=== PATIENT | male | born 1955 | race Caucasian/White ===

== ENCOUNTER 2019-11-04 14:36 | Emergency (ER) | payer OTHER, SELFPAY ==
[2019-11-04 14:51] VITALS: BP 150/79; PULSE 62; RESP 13; TEMP 36.2; O2SAT 100
--- NOTE | 2019-11-04 15:20 | ED_ITS ---
HPI - Wound/Laceration <Ana Segura PA-C - Last Filed: 11/04/19 23:53> General Chief Complaint: Wound/Laceration Stated Complaint: cut right thumb Time Seen by Provider: 11/04/19 14:44 Mode of arrival: Ambulatory History of Present Illness HPI narrative: Previously healthy 64 year old who presents with Left distal thumb laceration crossing the nail bed with bleeding well controlled. He was using a miter saw earlier today to work on some base boards on a construction project and he says ?my thumb got too close to the saw. He came to the emergency department immediately afterwards, he says he is experiencing minimal pain and he says that his sensation feels normal at the end of his thumb. He states this is an isolated complaint he did not have any other injuries, he also denies any prodrome of dizziness lightheadedness prior to this injury, he says he ?was cutting something smaller than I probably should have been. He denies significant bleeding, severe pain, loss of sensation, or any other injury. Onset (ago): hour(s) (1) Extremity Location: Right: hand Place: home Patient tetanus UTD: Yes (2016) Context: accidental Associated symptoms: pain Related Data Previous Rx's Medication Instructions Recorded ibuprofen 800 mg PO Q8H #30 tab 11/04/19 oxycodone-acetaminophen 1 tab PO Q8H PRN #12 tab 11/04/19 Allergies Allergy/AdvReac Type Severity Reaction Status Date / Time No Known Drug Allergies Allergy Verified 11/04/19 15:58 Review of Systems <Ana Segura PA-C - Last Filed: 11/04/19 23:53> Review of Systems Narrative: GENERAL: Denies chills, fatigue, malaise, fever, sweats. HEENT: Denies sinus pain, ear pain, sore throat, difficulty swallowing, dizziness. RESPIRATORY: Denies dyspnea, cough, wheezing, hemoptysis, sputum. CARDIOVASCULAR: Denies chest pain, palpitations, orthopnea, edema, MUSCULOSKELETAL: denies weakness, joint pain, or bony pain SKIN: Positive for deep laceration through the entire nail of his right thumb. Denies rash, skin lesions, or other NEUROLOGIC: Denies weakness, headache, numbness, change in speech, confusion, seizures, incoordination. PSYCHIATRIC: No concerning psychosocial issues. 12 point review of systems is negative except for those stated above Patient History <Ana Segura PA-C - Last Filed: 11/04/19 23:53> Social History Smoking Status: Never smoker Smoking Status: Never smoker alcohol intake frequency: a few times a month Substance Use Type: does not use Exam <Ana Segura PA-C - Last Filed: 11/04/19 23:53> Narrative Exam Narrative: GENERAL: 64 year old patient appears stated age. Well-nourished, well-developed patient, in mild distress. HEAD: Atraumatic. Normocephalic. EYES: Pupils equal round and reactive. Extraocular motions intact. No scleral icterus. No injection or drainage. CARDIOVASCULAR: Regular rate and rhythm without murmurs, gallops, or rubs. RESPIRATORY: Clear to auscultation. Breath sounds equal bilaterally. No wheezes, rales, or rhonchi. GASTROINTESTINAL: Abdomen soft, non-tender, nondistended. EXTREMITIES: There is a deep laceration of the Right 1st distal finger on the posterior side through the nail bed and crossing the nail laterally at a slight angle and extending into the skin laterally on both sides of the nail bed. Bleeding is controlled. Distal fingertip has mobility suggestive of a fracture. No edema or joint tenderness. Sensation is intact, slightly diminished at the distal finger tip. NEURO: AOx3. SKIN: No rash or erythema of visible areas Initial Vital Signs Initial Vital Signs: Vital Signs Temperature 97.1 F L 11/04/19 14:51 Pulse Rate 62 11/04/19 14:51 Respiratory Rate 13 11/04/19 14:51 Blood Pressure 150/79 H 11/04/19 14:51 Pulse Oximetry 100 11/04/19 14:51 <Rajesh Diaz DO - Last Filed: 11/05/19 08:01> Initial Vital Signs Initial Vital Signs: Vital Signs Temperature 97.1 F L 11/04/19 14:51 Pulse Rate 62 11/04/19 14:51 Respiratory Rate 13 11/04/19 14:51 Blood Pressure 150/79 H 11/04/19 14:51 Pulse Oximetry 100 11/04/19 14:51 Procedures <Ana Segura PA-C - Last Filed: 11/04/19 23:53> Laceration Repair Laceration 1: Site: hand Side (If applicable): right Description: linear and contaminated Depth: [id number] (Involves bone, open fracture.) Local Anesthetic: lidocaine 1% (Digital block) Amount of anesthesia used (mL): 6 Pre-repair: wound explored and irrigated extensively Skin layer closed with: nylon Size (cm): 4-0 and 5-0 Number of sutures: 5 Technique: simple, interrupted and other (Three sutures with 4-0 nylon through the nail bed to reattach distal finger tip and distal nail 2 sutures 5-0 nylon through the skin lateral/medial to nail bed) Course <Ana Segura PA-C - Last Filed: 11/04/19 23:53> Orders Ordered: Discontinued Medications Acetaminophen (Tylenol) 650 mg PO NOW ONE Stop: 11/04/19 15:31 Last Admin: 11/04/19 16:01 Dose: 650 mg Documented by: ABDIR Cefazolin Sodium/Dextrose (Ancef) 1 gm in 50 mls @ 200 mls/hr IV NOW ONE Stop: 11/04/19 16:36 Last Infusion: 11/04/19 18:02 Dose: 0 mls/hr Documented by: Admin: 11/04/19 16:47 Dose: 200 mls/hr Documented by: BTONER Ibuprofen (Advil) 800 mg PO NOW ONE Stop: 11/04/19 15:31 Last Admin: 11/04/19 16:01 Dose: 800 mg Documented by: BTONER Lidocaine/Prilocaine (Lidocaine-Prilocaine Cream) 5 gm TOP NOW ONE Stop: 11/04/19 15:32 Last Admin: 11/04/19 16:01 Dose: 5 gm Documented by: BTONER Lidocaine/Sodium Bicarbonate (Buffered Lidocaine 10 Ml Syr) 10 ml INJ NOW ONE Stop: 11/04/19 16:25 Last Admin: 11/04/19 16:47 Dose: 10 ml Documented by: BTONER Consultations Consultation #1: Dr. Guardado, orthopedics was consulted regarding this patient, he advised Ancef in the emergency department, washout and a simple suture closure with follow-up appointment at his office in 2 days, on Monday. Vital Signs Vital signs: Vital Signs - 8 hr 11/04/19 19:19 Pulse Rate 70 Respiratory Rate 16 Blood Pressure 124/76 Pulse Oximetry 98 <Rajesh Diaz DO - Last Filed: 11/05/19 08:01> Orders Ordered: Discontinued Medications Acetaminophen (Tylenol) 650 mg PO NOW ONE Stop: 11/04/19 15:31 Last Admin: 11/04/19 16:01 Dose: 650 mg Documented by: BTONER Cefazolin Sodium/Dextrose (Ancef) 1 gm in 50 mls @ 200 mls/hr IV NOW ONE Stop: 11/04/19 16:36 Last Infusion: 11/04/19 18:02 Dose: 0 mls/hr Documented by: Admin: 11/04/19 16:47 Dose: 200 mls/hr Documented by: BTONER Ibuprofen (Advil) 800 mg PO NOW ONE Stop: 11/04/19 15:31 Last Admin: 11/04/19 16:01 Dose: 800 mg Documented by: BTONER Lidocaine/Prilocaine (Lidocaine-Prilocaine Cream) 5 gm TOP NOW ONE Stop: 11/04/19 15:32 Last Admin: 11/04/19 16:01 Dose: 5 gm Documented by: BTONER Lidocaine/Sodium Bicarbonate (Buffered Lidocaine 10 Ml Syr) 10 ml INJ NOW ONE Stop: 11/04/19 16:25 Last Admin: 11/04/19 16:47 Dose: 10 ml Documented by: BTONER Vital Signs Vital signs: Vital Signs - 8 hr 11/04/19 19:19 Pulse Rate 70 Respiratory Rate 16 Blood Pressure 124/76 Pulse Oximetry 98 MDM - Wound/Laceration <Ana Segura PA-C - Last Filed: 11/04/19 23:53> Differential Diagnosis Differential diagnosis: Likely laceration and other (fracture) Medical Records Attestation: I reviewed the patient's medical records. Imaging Data Extremity x-ray #1: Attestation: I personally reviewed and interpreted this imaging study as follows: Radiologist's Impression: [address] [address] XRay Report Signed Patient: Benny Dickerson#: [id number] : 6Acct:[id number] Age/Sex: 64 / MDate of Service: 11/04/19 Loc: ED Accession Number: [id number] Procedure: XR finger RT min 2V Ordering Provider: Ana Segura P.A-C PROCEDURE: XR FINGER RT MIN 2V INDICATIONS: saw near tip of digit TECHNIQUE: AP hand, 2 views of the 1st finger(s) acquired. COMPARISON: None. FINDINGS: Bones: There is a mildly displaced fracture of the distal tuft of the distal phalanx of the 1st digit. Joint space narrowing and peritubular osteophytes formation at the interphalangeal joints of the digits. Soft tissues: No suspicious soft tissue calcifications. IMPRESSION: 1st digit fracture as above. Dictated by: Vick Oseguera M.D. on 11/04/2019 at 15:48 Approved by: Vick Osegeura M.D. on 11/04/2019 at 15:48 MDM Narrative Medical decision making narrative: This is a generally healthy 64-year-old who presents to the emergency department with complaints of a miter saw injury to his distal right thumb. Injury was sustained today just prior to arrival at the emergency department. Differential diagnoses that were considered include laceration, open fracture, vascular damage, nerve damage, tendon damage, risk of infection. He had a mildly displaced distal tuft fracture of the distal phalanx of his right hand 1st digit. He received Ancef IV in the emergency department and the wound was irrigated and sutured as above. He was provided with instructions for follow-up with Dr. Guardado, and provided with emergency return precautions. He was also prescribed ibuprofen and a short course of Percocet. Labs were not obtained. Of note he does not have an established PCP here and I provided him with [facility] information so that he can attempt to set this up. All questions were answered. Discharge Plan Departure Patient Disposition: Home Clinical Impression: Laceration Fracture of thumb, right open Qualifiers: Encounter type: initial encounter Phalanx: distal Fracture alignment: displaced Qualified Code(s): S62.521B - Displaced fracture of distal phalanx of right thumb, initial encounter for open fracture Discharge Date/Time: 11/04/19 19:19 Instructions: DI for Laceration Repair, DI for Open Fracture Activity Restrictions/Additional Instructions: Thank you for allowing us to be part of your care in the emergency department today. You have a fracture of the distal and of your thumb and you should call to make an appointment with orthopedic physician Dr. Guardado or his office this week. He received IV antibiotics in the emergency department today because he had open fracture of your bone, it was also thoroughly washed out and repaired with sutures. There is no evidence of an emergent or life threatening illness at this time, but follow up with your doctor in 1-2 days is recommended nonetheless to continue to rule out serious underlying causes of your symptoms. Please call the office for an appointment. Please return to the Emergency Depa rtment for any worsening or persistent symptoms. Please take medications as directed. I have provided a prescription of stronger pain medicine for the next 3 days which you can take if needed, but 1st try alternating Tylenol and ibuprofen for pain if you prefer. Please pay attention to how you are doing, and watch for any signs of infection such as fever, chills, nausea or vomiting. He should follow the dosing instructions on your Tylenol [id number] medicine, the maximum safe doses in a day is 4000 mg, spaced out (for a short duration). Maximum dose of ibuprofen is 3200 mg per day also for a short duration. I prescribed ibuprofen 800 for you I have also prescribed Percocet for 3 days which he can take every 8 hours as needed for pain, these have both been a prescribed and sent to the [facility] in [place]. Prescriptions: New ibuprofen 800 mg tablet 800 mg PO Q8H Qty: 30 RF: 0 oxycodone-acetaminophen 5-325 mg tablet 1 tab PO Q8H PRN (Reason: pain) Qty: 12 RF: 0 Referrals: [facility] [Outside] Tavares Guardado MD [Physician] - (Call for appt this week (Likely Monday)) <Rajesh Diaz DO - Last Filed: 11/05/19 08:01> [facility] I was immediately available in the department for consultation. This documentation has been reviewed and I agree with assessment and plan. Supervised by Rajesh Diaz DO
[2019-11-04] MEDS: LIDOCAINE/PRILOCAINE 5 GM TOP (16:01)
[2019-11-04] MEDS: IBUPROFEN 400 MG TABLET 800 MG PO (16:01)
[2019-11-04] MEDS: ACETAMINOPHEN 325 MG TABLET 650 MG PO (16:01)
[2019-11-04] MEDS: LIDO 1%/SOD BICARB 8.4% (10ML) 10 ML SYRINGE INJ (16:47)
[2019-11-04] MEDS: CEFAZOLIN 1 GM/50 ML FROZ.PIGGY IV (16:47)
--- NOTE | 2019-11-04 19:18 | PC.NURSE ---
surg i rachael used on wound before bulky dressing.
[2019-11-04 19:19] VITALS: BP 124/76; PULSE 70; RESP 16; O2SAT 98
== END 2019-11-04 19:19 | disposition home or self-care (01) ==
PROVIDERS: Emergency Provider Student in an Organized Health Care Education/Training Program
DX: S62.521B Displaced fracture of distal phalanx of right thumb, initial encounter for open fracture (principal); W29.3XXA Contact with powered garden and outdoor hand tools and machinery, initial encounter
CPT/HCPCS: 12041; 73140; 96365; 99284

== ENCOUNTER → 2019-11-15 11:37 | Outpatient (CLI) | payer OTHER, SELFPAY ==
--- NOTE | 2019-11-15 | DI.RAD.S_ITS ---
PROCEDURE: XR KNEE RT 3V INDICATIONS: RIGHT KNEE PAIN TECHNIQUE: 3 views of the knee were acquired. COMPARISON: None. FINDINGS: Bones: No fractures or dislocations. No suspicious bony lesions. Minimal to mild medial and lateral as well as minimal patellofemoral compartment narrowing. No erosions. Soft tissues: Mild joint effusion. No suspicious soft tissue calcifications. IMPRESSION: Minimal to mild tricompartmental degenerative change suggestive osteoarthritis. Dictated by: Bhavya Anand M.D. on 11/15/2019 at 16:47 Approved by: Bhavya Anand M.D. on 11/15/2019 at 16:47
== END ==
PROVIDERS: PCP Family Medicine; Referring Provider Family Medicine; Visit Provider Family Medicine
DX: M25.561 Pain in right knee (principal); M25.461 Effusion, right knee
CPT/HCPCS: 73562

== ENCOUNTER → 2019-12-10 09:39 | Outpatient (CLI) | payer OTHER, SELFPAY ==
--- NOTE | 2019-12-10 | DI.MRI.S_ITS ---
PROCEDURE: MR KNEE RT WO CON INDICATIONS: Right knee pain TECHNIQUE: Noncontrast sagittal PD fast spin echo and T2 fast spin echo with fat saturation, sagittal 3-D FLASH with fat saturation; coronal T1 spin echo and PD fast spin echo with fat saturation, and axial PD fast spin echo with fat saturation through the knee. COMPARISON: [facility], CR, XR KNEE RT 3V, 11/15/2019, 11:35. FINDINGS: Image quality: Excellent. Menisci: There is linear oblique high T2 signal intensity traversing the posterior horn medial meniscus, demonstrating inferior articular surface extension. Lateral meniscus is intact. Cruciate ligaments: The anterior and posterior cruciate ligaments appear intact. Medial structures: The medial collateral ligament appears intact. Visualized portions of the pes anserinus tendons appear normal. No abnormal bursal fluid. Lateral structures: The lateral collateral ligament, long and short heads of the biceps femoris tendon appear intact. The popliteus tendon appears normal. Iliotibial band appears normal. Anterior structures: The quadriceps and patellar tendons appear intact. Patellar alignment is normal. No femoral trochlear dysplasia or ventral trochlear prominence. No edema in the infrapatellar fat pad. Mild prepatellar subcutaneous ill-defined STIR signal elevation. Bones and cartilage: No bone marrow contusions or fractures. Mild tricompartmental periarticular osteophyte formation is. There is mild diffuse articular cartilage loss overlying the weightbearing aspects of the medial femoral condyle and medial tibial plateau. Articular cartilage cerebral H. overlies the medial and lateral patellar facets. Joint space: There is a small knee joint effusion and a trace Dick's cyst. Normal appearing synovial plicae are incidentally noted. IMPRESSION: 1. Medial meniscal tear. 2. Medial and patellofemoral compartment cartilage loss. 3. Prepatellar bursitis. Dictated by: Vick Oseguera M.D. on 12/10/2019 at 10:43 Approved by: Vick Oseguera M.D. on 12/10/2019 at 10:45
== END ==
PROVIDERS: PCP Family Medicine; Referring Provider Family Medicine; Visit Provider Family Medicine
DX: M25.561 Pain in right knee (principal); S83.241A Other tear of medial meniscus, current injury, right knee, initial encounter; M70.41 Prepatellar bursitis, right knee
CPT/HCPCS: 73721

== ENCOUNTER → 2021-04-08 13:43 | Outpatient (CLI) | payer OTHER, SELFPAY ==
--- NOTE | 2021-04-08 | DI.CT.S_ITS ---
PROCEDURE: CT SINUS SCREEN WO CON INDICATIONS: Chronic pansinusitis TECHNIQUE: Noncontrast 3.0 mm axial images acquired from the frontal sinuses to the mid-sella, with coronal and sagittal reformats. For radiation dose reduction, the following was used: automated exposure control, adjustment of mA and/or kV according to patient size. COMPARISON: None. FINDINGS: Image quality: Excellent. Maxillary Sinuses: There is moderate mucosal thickening seen involving the inferior left maxillary sinus, with mild mucosal thickening involving the inferior right maxillary sinus. There is mild demineralization seen along medial robertson of the maxillary sinuses. Ethmoid Air Cells: No bony remodeling or destruction. Sinuses are clear. Sphenoid Sinuses: No bony remodeling or destruction. Sinuses are clear. Frontal Sinuses: No bony remodeling or destruction. Sinuses are clear. Ostiomeatal Complexes: Ostiomeatal complexes are patent. 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 Miscellaneous: Visualized intra-orbital contents are normal. No definite home bullosa or paradoxical turbinate curvature. No nasal septal deviation. IMPRESSION: Focal maxillary sinus disease can be seen, left worse than right. Demineralization is seen along the medial robertson of the maxillary sinuses, which is likely related to chronic sinusitis. Dictated by: Alfred Kingsley M.D. on 04/08/2021 at 13:15 Approved by: Alfred Kingsley M.D. on 04/08/2021 at 13:16
== END ==
PROVIDERS: PCP Family Medicine; Referring Provider Otolaryngology; Visit Provider Otolaryngology
DX: J32.4 Chronic pansinusitis (principal)
CPT/HCPCS: 70486

== ENCOUNTER → 2021-09-22 15:32 | Outpatient (CLI) | payer OTHER, SELFPAY ==
--- NOTE | 2021-09-22 | DI.RAD.S_ITS ---
PROCEDURE: XR LUMBAR SPINE 2-3V INDICATIONS: LOW BACK PAIN TECHNIQUE: 3 views of the lumbar spine were acquired. COMPARISON: None. FINDINGS: Bones: 5 [id number] vertebrae are present. There is normal bony alignment. No vertebral body compression fractures. No suspicious bony lesions. Mild degenerative disc changes noted throughout the lumbar spine. Mild L4-L5 and L5-S1 facet arthropathy. Soft tissues: Overlying bowel gas pattern is normal. No suspicious soft tissue calcifications. IMPRESSION: 1. Multilevel degenerative disc disease. 2. Multilevel facet arthropathy. 3. No fracture. No acute osseous lesion. If symptoms and/or clinical suspicion for pathology persists, evaluation with MRI should be considered for further assessment. Dictated by: Ruba Mccauley MD, PhD on 09/22/2021 at 16:51 Approved by: Ruba Mccauley MD, PhD on 09/22/2021 at 16:51
== END ==
PROVIDERS: PCP Family Medicine; Referring Provider Family Medicine; Visit Provider Family Medicine
DX: M51.36 Other intervertebral disc degeneration, lumbar region (principal); M51.37 Other intervertebral disc degeneration, lumbosacral region; M47.816 Spondylosis without myelopathy or radiculopathy, lumbar region; M47.817 Spondylosis without myelopathy or radiculopathy, lumbosacral region; M54.50 Low back pain, unspecified
CPT/HCPCS: 72100

== ENCOUNTER → 2023-05-15 15:06 | Outpatient (CLI) | payer OTHER, SELFPAY ==
--- NOTE | 2023-05-15 | DI.RAD.S_ITS ---
PROCEDURE: XR CHEST 2V INDICATIONS: cough TECHNIQUE: 2 views of the chest were acquired. COMPARISON: None. FINDINGS: Surgical changes and devices: Incompletely evaluated ACDF hardware. Lungs and pleura: Lungs are clear. No pleural effusions or pneumothorax. Mediastinum: Mediastinal contours are normal. Heart size is normal. Bones and chest wall: No suspicious bony abnormalities. Degenerative changes of the spine. Soft tissues appear unremarkable. IMPRESSION: No acute cardiopulmonary abnormality is seen. Dictated by: Michael Kowalski M.D. on 05/15/2023 at 15:48 Approved by: Michael Kowalski M.D. on 05/15/2023 at 15:49
== END ==
PROVIDERS: PCP Family Medicine; Referring Provider Family Medicine; Visit Provider Family Medicine
DX: R05.1 Acute cough (principal)
CPT/HCPCS: 71046

== ENCOUNTER → 2023-07-04 16:25 | Outpatient (CLI) | payer OTHER, SELFPAY ==
[2023-07-04 16:56] LABS: Add Manual Diff / Slide Review NO; Basophils Absolute Auto 100 /uL (0-100); Basophils Percent Auto 1.1 % (0-2); Eosinophils Absolute Auto 100 /uL (0-450); Eosinophils Percent Auto 2.1 % (2-4); Hemoglobin 13.2 g/dL (13.5-17.5); Lymphocytes Absolute Auto 1200 /uL (1100-4500); Lymphocytes Percent Auto 20.2 % (25-40); Mean Corpuscular HGB Conc 33.9 % (30-36); Mean Corpuscular Hemoglobin 30.8 PG (26-34); Mean Corpuscular Volume 90.7 fL (80-100); Monocytes Absolute Auto 400 /uL (0-900); Monocytes Percent Auto 6.5 % (3-14); Neutrophils Absolute Auto 4100 /uL (1500-7000); Neutrophils Percent Auto 70.1 % (50-75); Platelet Count 159 X10^3/uL (150-400); Red Blood Cell Count 4.29 X10^6/uL (4.5-5.9); Red Cell Distribution Width 13.2 % (11.6-14.8); White Blood Cell Count 5.8 X10^3/uL (4.5-11.0)
[2023-07-04 17:22] LABS: Erythrocyte Sedimentation Rate 8 MM/HR (0-15)
[2023-07-04 17:26] LABS: Alanine Aminotransferase 13 IU/L (<50); Albumin 4.1 g/dL (3.5-5.0); Albumin Globulin Ratio 1.3 (1.0-2.8); Alkaline Phosphatase 61 U/L (38-126); Aspartate Aminotransferase 19 IU/L (17-59); BUN Creatinine Ratio 22.9 (6-22); Bilirubin Total 0.6 mg/dL (0.2-1.3); Blood Urea Nitrogen 22 mg/dL (9-20); C-Reactive Protein Quant 0.5 mg/dL (<1.0); Calcium 8.9 mg/dL (8.4-10.2); Carbon Dioxide 30 mmol/L (22-32); Chloride 104 mmol/L (98-107); Estimated Glomerular Filt Rate > 60 mL/min (>60); Globulin 3.2 g/dL (1.7-4.1); Glucose 90 mg/dL (80-110); HEMOLYSIS < 15 (0-50); Sodium 139 mmol/L (137-145); Total Protein 7.3 g/dL (6.3-8.2)
== END ==
PROVIDERS: PCP Family Medicine; Referring Provider Family Medicine; Visit Provider Family Medicine
DX: R10.9 Unspecified abdominal pain (principal); T69.1XXA Chilblains, initial encounter
CPT/HCPCS: 36415; 80053; 85025; 85651; 86140

== ENCOUNTER → 2023-07-10 06:39 | Outpatient (CLI) | payer OTHER, SELFPAY ==
--- NOTE | 2023-07-10 06:40 | DI.US.S_ITS ---
PROCEDURE: US RENAL COMPLETE INDICATIONS: LEFT FLANK/LOWER BACK PAIN TECHNIQUE: Real-time scanning was performed of the kidneys and bladder, with image documentation. COMPARISON: None. FINDINGS: Kidneys: Kidneys are normal in size. Right kidney measures 10.1 cm long; left kidney measures 9.3 cm long. Right renal cortical thickness is 1.3 cm; left renal cortical thickness is 1.6 cm. Renal cortical echotexture is normal. No hydronephrosis or nephrolithiasis. No suspicious solid mass lesions. Bladder: Not interrogated. Miscellaneous: No free pelvic fluid. There are multiple large gallstones incidentally noted within the gallbladder fundus. The wall measures 2.4 mm in diameter. IMPRESSION: 1. No hydronephrosis. 2. Cholelithiasis. No findings to suggest choledocholithiasis or acute cholecystitis. Dictated by: Lisa Cordova M.D. on 07/10/2023 at 17:16 Approved by: Lisa Cordova M.D. on 07/10/2023 at 17:17
== END ==
LOC: US 06:39
PROVIDERS: PCP Family Medicine; Referring Provider Family Medicine; Visit Provider Family Medicine
DX: K80.20 Calculus of gallbladder without cholecystitis without obstruction (principal); R10.9 Unspecified abdominal pain
CPT/HCPCS: 76770

== ENCOUNTER 2023-08-16 09:56 | Day surgery (SDC) | payer OTHER, SELFPAY ==
[2023-08-14 08:52] VITALS: BMI 23.1
[2023-08-16 10:24] VITALS: BMI 23.7
[2023-08-16 10:30] VITALS: BP 155/78; PULSE 65; RESP 14; TEMP 36.4; O2SAT 100
[2023-08-16] MEDS: LACTATED RINGERS 1,000 ML 42 ML IV (10:33)
--- NOTE | 2023-08-16 10:46 | PM.PREOP ---
Pre-operative Note Interval Note History & Physical reviewed/Exam performed by Physician: Yes Changes to H&P: No
--- NOTE | 2023-08-16 10:49 | P.OP_ITS ---
Operative Date/Time/Diagnoses Date of procedure: 08/16/23 Time of procedure: 10:49 Pre-op diagnosis: Right inguinal hernia Post-op diagnosis: same Procedure & Clinicians Procedure: Open repair of right inguinal hernia Same procedure as scheduled: Yes Indications: Symptomatic reducible right inguinal hernia history of a appendectomy Surgeon: Fletcher Ward Toby Maker: Arias Taylor Anesthesia Type: General Operative Notes Findings: large direct floor defect Estimated Blood Loss (mL): 20 Procedure in detail: The patient was placed supine on the table and bilateral lower extremity compression devices were applied. Anesthesia was induced they were intubated with an LMA and received Ancef. A time-out was performed. They were prepped and draped in sterile fashion. The right external inguinal ring and the anterior superior iliac crest were identified and marked. 1 finger breath above the inguinal ligament the skin was infiltrated with 0.25% bupivacaine. The skin incision was made, the subcutaneous tissues were divided with electrocautery exposing the external oblique aponeurosis which was then opened along the direction of its fibers. Using blunt dissection the internal oblique aporneurosis was from the external oblique upper leaflet. The cord was carefully dissected away from the inguinal canal adjacent to the pubic tubercle. The cord including the vas deferens, testicular bloody supply, ilioguinal and genital nerve were encircled with a [place] drain. A large direct floor defect was identified and it was reduced into the abdomen and the internal oblique aporneuorsis was approximated to the inguinal ligament with Ethibond suture to reapproximate the floor over a plug of mesh. The cremasteric fibers surrounding the cord were divided adjacent to the internal ring. The vas deferens and the testicular vessels were preserved and protected. The cord contents were carefully explored. There was no evidence of a indirect hernia. A 7x 15 cm lightweight Bard Pro Loop hernia mesh was anchored to the insertion of the rectus muscle at the pubic tubercle such that there was approximately 2 cm of tubercle overlap with Ethibond. The inferior edge of the mesh was secured to the shelving edge of the inguinal ligament using Ethibond. Interrupted 3 0 Vicryl suture was used to anchor the superior aspect of the mesh to the conjoined tendon in several places. The tails were then reapproximated loosely around the spermatic cord. The tails of the mesh were then tucked under the external oblique aponeurosis. The repair was checked for hemostasis. The wound was irrigated with sterile saline. The external oblique aponeurosis was reapproximated in a running fashion using 3 0 Vicryl. The subcutaneous tissues were reapproximated with 3 0 Vicryl skin closed with 4 0 Monocryl followed by the application of Dermabond. At the end of the operation I ensured that both testicles were within the scrotum. The sponge instrument count at the end operation was correct. The patient emerged from anesthesia was extubated and transferred to the postoperative care unit in stable condition. A total of 30 ml of of 0.25% bupivicaine was used to infiltrate the skin. Complications: none Post-operative Disposition: same day surgery
[2023-08-16] MEDS: CEFAZOLIN 2 GM/100 ML PREMIX 100 ML IV (11:10)
--- NOTE | 2023-08-16 11:23 | SUR.OPER ---
Supine on padded OR bed, head on pillow, arms secured on padded arm boards at <90 degrees abduction, legs uncrossed, safety belt at thigh, tape over blanket over lower legs.
[2023-08-16] MEDS: BUPIVACAINE 0.25% (PF) VIAL 30 ML INJ (11:27)
[2023-08-16 12:11] VITALS: BP 104/61; PULSE 58; RESP 18; TEMP 36.6; O2SAT 96
[2023-08-16 12:16] VITALS: BP 108/73; PULSE 80; RESP 18; O2SAT 94
[2023-08-16 12:21] VITALS: BP 114/61; PULSE 71; RESP 14; O2SAT 99
[2023-08-16 12:26] VITALS: BP 124/76; PULSE 68; RESP 16; TEMP 36.4; O2SAT 99
[2023-08-16 14:06] VITALS: BP 124/78; PULSE 68; RESP 16; TEMP 36.7; O2SAT 98
== END 2023-08-16 14:10 | disposition home or self-care (01) ==
PROVIDERS: PCP Family Medicine; Referring Provider Surgery; Visit Provider Surgery
PROC: (CPT 49505; principal; 2023-08-16 11:30)
DX: K40.90 Unilateral inguinal hernia, without obstruction or gangrene, not specified as recurrent (principal)
CPT/HCPCS: 49505; J0690; J1100; J1885; J2250; J2405; J2704; J3010

== ENCOUNTER 2024-02-27 08:08 | Day surgery (SDC) | payer OTHER, SELFPAY ==
--- NOTE | 2024-02-27 | PATH_ITS ---
[facility] Accession Number: [id number] No. of containers..01 Tissue . 01 Material submitted: . colon - TRANSVERSE POLYP . 01 Diagnosis: TRANSVERSE COLON, POLYP: Tubular adenoma. MRV 02/29/2024 1326 Local . 01 Electronically signed: . Shanna Garham MD, Pathologist NPI- [id number] . 01 Gross description: . Received in formalin with two patient identifiers and transverse polyp, are three [place] soft tissue fragments, 0.5 cm in greatest dimension. Submitted in A1. ([id number]) /MRV 02/28/2024 0829 Local . 01 Pathologist provided ICD-10: D12.3 . 01 CPT . 954309 Specimen Comment: A courtesy copy of this report has been sent to [phone] Performed at: [address] [facility] [id number] MD Mesfin Magana MD Phone: [phone]
--- NOTE | 2024-02-27 08:20 | P.HP_ITS ---
History of Present Illness History of Present Illness Date Patient Seen: 02/27/24 Time Patient Seen: 08:20 Chief complaint: Colonoscopy Narrative: 68-year-old man personal history of colonic polyps here for screening colonoscopy. Last colonoscopy 7 years ago normal. No family history of colon cancer in first-degree relatives. No abdominal concerns today. [facility] Medical History Anesthesia complication History of COVID-19 (05/28/23) Enlarged prostate Arthritis Gallstones Bone spur Surgical History Hx of arthroscopic knee surgery (01/28/20) H/O vasectomy (1987) History of fusion of cervical spine (2006) History of appendectomy (1989) H/O eye surgery (1985) Family History Brother Gallstones Social History marital status: household members: spouse lives independently: Yes occupational status: previously employed Smoking Status: Never smoker alcohol intake: current substance use type: does not use Meds Home Medications and Allergies Home Medications Medication Instructions Recorded Confirmed Type EPICOR 500 mg PO DAILY 07/28/23 02/27/24 History calcium carbonate (Calcium 600) 600 mg PO DAILY 08/14/23 02/27/24 History vitamin D3 25 mcg (1,000 unit)-vit 2 tab PO DAILY 08/14/23 02/27/24 History K2 90 mcg disintegrating tablet acetaminophen 325 mg capsule 650 mg (2 x 325 mg) PO QID PRN 08/16/23 02/27/24 Rx (Tylenol) pain #60 caps ibuprofen 200 mg tablet 400 mg (2 x 200 mg) PO Q6H #60 tabs 08/16/23 02/27/24 Rx sildenafil 100 mg tablet 50 mg PO PRN PRN Erectile 02/27/24 02/27/24 History Dysfunction Allergies Allergy/AdvReac Type Severity Reaction Status Date / Time No Known Drug Allergies Allergy Verified 02/27/24 08:36 Exam Narrative Exam Narrative: General adult man alert oriented no acute distress Chest nonlabored respiration Extremities warm well perfused Assessment & Plan Assessment & Plan narrative: The patient requires colorectal screening and colonoscopy is recommended. Technical details were discussed. Risks, benefits, alternatives explained. Risks including but not limited to myocardial infarction, aspiration, bleeding, pain, missed lesion, incomplete examination, need for further radiographic studies, intestinal injury, and need for major abdominal surgery were discussed. All questions were answered to their satisfaction, and they are in agreement with this plan. Time-Based Coding :: [TOTAL MINUTES] spent with patient and on the chart (including review of chart, obtaining history, exam, reviewing outside data, placing orders, documenting exam and treatment plan, and counseling patient) on [DATE].
[2024-02-27 08:43] VITALS: BP 145/76; PULSE 59; RESP 16; TEMP 36.7; O2SAT 100
--- NOTE | 2024-02-27 08:50 | P.OP.COLON_ITS ---
Operative Date/Time/Diagnoses Date of procedure: 02/27/24 Time of procedure: 08:50 Pre-op diagnosis: Colorectal screening Procedure & Clinicians Study performed: Screening colonoscopy Same procedure as scheduled: Yes Indications: Screening Surgeon: Fletcher Ward Procedure Notes Procedure in detail: The history and physical was performed/updated and the patient is ASA class is 2. The procedure was discussed in detail with the patient. Potential risks complications including infection, bleeding, missed diagnosis, perforation, need for surgery, and were explained. Their questions were answered and informed consent was obtained. Patient was brought to the procedure room and placed standard monitoring equipment. The patient's vital signs were monitored continuously throughout the entire procedure. Prior to starting time-out was performed. The patient was placed in the left lateral recumbent position. Procedural sedation was administered by anesthesia. Examination began with a thorough inspection of the perianal area there was no evidence of fissures, fistulae, external hemorrhoids or cutaneous malignancy. The colonoscopy scope was then placed into the anal canal and was advanced to the cecum, which was identified by the ileocecal valve, the appendiceal orifice and the confluence of the taenia. The scope was then slowly withdrawn examining colon thoroughly in all directions, irrigating it of any residual stool. The scope was retroflexed within the rectum The patient tolerated the procedure well. They will be discharged once criteria are met. The prep was of good/excellent quality. The withdrawl time was 7 minutes. FINDINGS * Transverse colon 3-5 mm sessile polyp removed in entirety with biopsy forceps Specimen(s): other (Transverse colon polyp) Impression: Colonic polyp x1 Post-procedure Plan for aftercare: Follow-up is dependent on pathology findings likely 5 years. Disposition: same day surgery
[2024-02-27 09:50] VITALS: BP 134/72; PULSE 65; RESP 13; TEMP 36.2; O2SAT 99
[2024-02-27 09:54] VITALS: BP 115/76; PULSE 70; RESP 15; O2SAT 99
[2024-02-27 09:55] VITALS: BP 122/77; PULSE 65; RESP 14; O2SAT 99
[2024-02-27] MEDS: LACTATED RINGERS 1,000 ML 42 ML IV (09:59)
[2024-02-27 10:01] VITALS: BP 129/79; PULSE 61; RESP 16; O2SAT 99
== END 2024-02-27 10:04 | disposition home or self-care (01) ==
PROVIDERS: PCP Family Medicine; Referring Provider Surgery; Visit Provider Surgery
PROC: 0DJD8ZZ Inspection of Lower Intestinal Tract, Via Natural or Artificial Opening Endoscopic (ICD-10-PCS; CPT 45378; principal; 2024-02-27 09:30)
DX: Z12.11 Encounter for screening for malignant neoplasm of colon (principal); D12.3 Benign neoplasm of transverse colon
CPT/HCPCS: 45380; J2704